=== PATIENT | male | born 1955 | race Caucasian/White ===

== ENCOUNTER 2017-10-19 04:31 | Emergency (ER) | payer BC ==
[~2017-10-19] VITALS: Ht 181.6 cm; Wt 105.5 kg
[2017-10-19 04:32] VITALS: BP 154/106
[2017-10-19] MEDS ORDERED: cocaine 4% topical solution 4ml bottle MM ONE (04:45)
[2017-10-19] MEDS ORDERED: ondansetron/PF 4mg/2ml inj IV ONE (04:45)
[2017-10-19] MEDS ORDERED: phenylephrine 1% (X-tra strg) 15ml nasal spray NS PRN (05:05)
== END 2017-10-19 05:54 | disposition home or self-care (01) ==
LOC: ER 04:32
DX: R04.0 Epistaxis (principal); I10 Essential (primary) hypertension
CPT/HCPCS: 99283

== ENCOUNTER 2017-10-20 07:09 | Emergency (ER) | payer BC ==
[~2017-10-20] VITALS: Ht 180.3 cm; Wt 105.0 kg
[2017-10-20] MEDS ORDERED: LIDOcaine Viscous 15ml cup MM ONE (07:20)
[2017-10-20] MEDS ORDERED: oxymetazoline 15 ML nasal spray NS ONE (07:20)
[2017-10-20 09:08] VITALS: BP 161/95
== END 2017-10-20 09:10 | disposition home or self-care (01) ==
LOC: ER 07:11
DX: R04.0 Epistaxis (principal); I10 Essential (primary) hypertension; Z85.9 Personal history of malignant neoplasm, unspecified
CPT/HCPCS: 30901; 99284